=== PATIENT | male | born 1960 | race Caucasian/White ===

== ENCOUNTER 2020-08-23 12:24 | Outpatient (REF) | payer MEDICARE, SELFPAY ==
--- NOTE | 2020-08-23 16:13 | MHC.AU.P13 ---
Adult Audiological Evaluation Date of Visit: 08/23/20 Reason for Appointment: Decreased hearing Does patient feel they have a hearing loss?: Yes If Yes, Which Ear?: Both Ears When Was Hearing Difficulty First Noticed?: 20 years ago Has hearing been tested previously?: No Hearing Handicap Inventory Does a hearing problem cause you to feel embarrassed when meeting new people?: Sometimes Does a hearing problem cause you to feel frustrated when talking to members of your family?: Sometimes Do you have difficulty when someone speaks in a whisper?: No Do you feel handicapped by a hearing problem?: Sometimes Does a hearing problem cause you difficulty when visiting friends, relatives, or neighbors?: Sometimes Does a hearing problem cause you to attend baptism service services less often than you would like?: Sometimes Does a hearing problem cause you to have arguments with family members?: Sometimes Does a hearing problem cause you difficulty when listening to TV or radio?: Sometimes Do you feel that any difficult with your hearing limits or hampers your personal or social life?: Yes Does a hearing problem cause you difficulty when in a restaurants with relatives or friends?: Sometimes HHIE SCORE: 20 Based on HHIE score, patient has: Mild to moderate perceived hearing handicap Ear History: Recent Ear Drainage: Both Ears Blocked/Full Sensation in Ear(s): Both Ears Medical History: Medical History: Developmental Disorder/Delay, Dizziness or Unsteadiness, Headache, Head Injury, Tobacco Use Otoscopy: Right Ear: Totally occluding cerumen, successfully removed with suction, able to fully visualize TM. Left Ear: Totally occluding cerumen, partially removed with suction, significant cerumen accumulation remains. Can partly view the TM. Tympanometry: Right Ear: Normal Middle Ear System (Type A) Left Ear: Normal Middle Ear System (Type A) Hearing Evaluation: Transducer(s) Used: Insert Earphones, Bone Conduction Method: Conventional Audiometry Stimuli Used: Pure Tones Right Ear: Description of Hearing: Normal hearing from 250-500 Hz, sloping a mild to severe hearing loss from 1776-4883 Hz. Bone conduction testing is suggestive of a slight conductive component. Left Ear: Description of Hearing: Normal hearing from 250-500 Hz, sloping a mild to moderately severe hearing loss from 6075-1460 Hz. Bone conduction testing is suggestive of a slight conductive component. Speech Recognition Threshold (SRT): Method Used: Recorded Lists Stimuli Used: Spondee Words Right Ear: 30 dBHL Left Ear: 35 dBHL Word Discrimination: Method: Recorded Lists Word Lists Used: Lista Bisil?bica (Georgian) Right Ear: 100% at 70 dBHL Left Ear: 100% at 70 dBHL Recommendations: Recommendations (Other): Patient should follow-up with his PCP or otolaryngology for cerumen removal. Able to clear the right ear, but left ear became irritated and could not fully clear left ear. Recommend returning to recheck puretone thresholds following cerumen removal to confirm thresholds and discuss hearing aids. Diagnosis: Primary Diagnosis: H90.6 Mixed Hearing Loss, Bilateral Secondary Diagnosis: H61.23 Impacted Cerumen, Bilateral Services Performed: Services Performed: Comprehensive Audiological Evaluation (CPT 46604) Tympanometry (CPT 17555) Signature: Provider: Tami Mata, CCC-A
== END 2020-08-23 12:25 | disposition home or self-care (01) ==
LOC: HO.SH 12:24
PROVIDERS: Visit Provider Student in an Organized Health Care Education/Training Program
DX: H90.6 Mixed conductive and sensorineural hearing loss, bilateral (principal); H61.23 Impacted cerumen, bilateral
CPT/HCPCS: 92557; 92567

== ENCOUNTER 2021-11-13 04:11 | Observation (INO) | payer MEDICARE, SELFPAY ==
[2021-11-13] VITALS (8 sets, daily range): BP systolic 101–137; BP diastolic 49–73; PULSE 62–96; RESP 14–20; TEMP 35.6–36.8; O2SAT 93–97; BMI 27.8
--- NOTE | ~2021-11-13 | XR_ITS ---
EXAMINATION: XR CHEST CLINICAL INFORMATION: Unresponsive COMPARISON: None TECHNIQUE: Frontal view of the chest was obtained. FINDINGS: Patchy peripheral opacity within the right mid and lower lung. Streaky opacity within left lower lung. Normal heart size and pulmonary vascularity. No pneumothorax. No acute or suspicious osseous abnormalities. XR/XR chest 1V IMPRESSION: Patchy opacities within the periphery of the right mid and lower lung could represent infiltrates. Streaky opacity in the left lower lung may represent atelectasis
--- NOTE | ~2021-11-13 | CT_ITS ---
EXAMINATION: CT HEAD WITHOUT CONTRAST CLINICAL INFORMATION: Unresponsive COMPARISON: None TECHNIQUE: Contiguous axial imaging was performed from the skull base to vertex without intravenous administration of contrast. This CT examination was performed using dose optimization techniques as appropriate, variously including the following: *Automated exposure control *Adjustment of mA and/or kV according to patient size (this includes techniques or standardized protocols for targeted exams where dose is matched to indication/reason for exam; i.e. extremities or head) *Use of iterative reconstruction technique DLP: 692 mGy-cm FINDINGS: There is no evidence of acute intracranial hemorrhage or territorial infarction. No abnormal mass effect or midline shift is seen. Pierre to white matter differentiation is well preserved. No extra-axial fluid collections are identified. The ventricles are normal in size. There is no abnormal attenuation within the brain parenchyma. The osseous structures and soft tissues are normal. The mastoid air cells and visualized portions of the paranasal sinuses are well aerated. CT/CT head/brain wo con IMPRESSION: No acute intracranial pathology.
--- NOTE | 2021-11-13 04:27 | ECG_ITS ---
Test Reason : AMS Blood Pressure : / mmHG Vent. Rate : 077 BPM Atrial Rate : 077 BPM P-R Int : 158 ms QRS Dur : 078 ms QT Int : 386 ms P-R-T Axes : 014 093 043 degrees QTc Int : 436 ms Normal sinus rhythm Rightward axis Nonspecific ST abnormality Abnormal ECG No previous ECGs available Referred By: Vita Carter Electronically Signed By:JA WOODS MD
--- NOTE | 2021-11-13 04:34 | ED_ITS ---
HPI - Altered Mental Status General Chief Complaint: General Medical Stated Complaint: unresponsive from SNF Time Seen by Provider: 11/13/21 04:23 Source: patient, EMS, old records reviewed and bowling ball grader and marker Mode of arrival: EMS Limitations: altered mental status History of Present Illness HPI narrative: 60-year-old male brought in by ambulance from a senior living for being unresponsive, on the patient arrival a pin point pupil was noticed, semi responsive, no sign of infection or Trauma patient was given 4 mg of Narcan and patient responded shortly after. Patient is still mumbling and incoherent according to the bowling ball grader and marker, patient declined using any drugs. Reviewing patient's record patient with history of anxiety, schizophrenia, back pain, hernia, and small bowel obstruction. Related Data Allergies Allergy/AdvReac Type Severity Reaction Status Date / Time No Known Allergies Allergy Verified 11/13/21 04:27 Review of Systems Review of Systems: Yes Unobtainable due to mental status PMFSH Social History Social History Advance Directives: No Advance Directives Information Provided: No Physical Exam Vital Signs: Vital Signs: Last Vital Signs Temp 98.3 F 11/13/21 04:56 Pulse 79 11/13/21 04:30 Resp 14 11/13/21 04:30 BP 116/65 11/13/21 04:30 Pulse Ox 96 11/13/21 04:30 BMI result Body Mass Index 27.8 Vital signs have been reviewed as appeared to be correct. Blood pressure normal. Heart rate normal. Respiration rate normal. Temperature normal. Oxygen saturation normal. Appearance: Alert but confused, follow command, No acute distress. Head: Normal external exam. Normocephalic. Atraumatic. No Smith signs noted. No raccoon eyes noted Eyes: PERRLA. EOMI. Conjunctiva and sclera normal. Eyelids normal. ENT: TM's Normal. Pharynx normal. Uvula midline. Moist mucous membranes. No trismus noted. No drooling noted. No muffled voice noted. Neck: Normal inspection. Neck supple. FROM. No adenopathy. Thyroid Normal. No meningeal signs. No neck mass noted. CVS: Normal heart rate and rhythm. Heart sound normal. No murmurs noted. Pulses normal throughout. Respiratory: No respiratory distress. Painless inspiration. Breath sounds normal. No wheezes/rales/rhonchi noted. Chest nontender. No accessory muscle usage noted or decreased air movement noted. Abdomen: Soft and nontender. Bowel sounds normal in all 4 quadrants. No distention noted. No organomegaly noted. No visible injury noted. Back: No CVA tenderness. Full range of motion noted. Skin: Skin warm and dry. Normal skin color. Normal skin turgor. No rashes/lesions/lacerations noted. Extremities: No lower extremity edema. Extremities exhibit normal range of motion. Extremities nontender. Neuro: Oriented X 3. Cranial nerve exam: II-XII are grossly intact No motor deficit. No sensory deficit. Reflexes normal. Course Course Course Narrative: Assessment and plan. 60 years old male came in from senior living for being unresponsive, unlikely to be related to drug abuse since the patient reside in a senior living, chest x-ray is consistent with multilobar pneumonia patient do not meet criteria for SIRS. Patient mental status is improving with fluid and antibiotic. CT head is unrem arkable. Will admit the patient for IV Zosyn and Zithromax possible healthcare acquired pneumonia. MDM - Altered Mental Status Lab Data Attestation: I reviewed the patient's lab results. Result diagrams: 11/13/21 04:49 11/13/21 04:49 Labs: Lab Results 11/13/21 11/13/21 11/13/21 Range/Units 04:49 04:49 04:49 WBC 9.0 (4.8-10.8) X10*3/uL RBC 5.45 (4.60-5.80) X10*6/uL Hgb 15.6 (14.0-18.0) g/dl Hct 47.4 (42.0-52.0) % MCV 87.0 (80.0-98.0) fL MCH 28.6 (27.0-33.0) pg MCHC 32.9 (31.0-36.0) g/dl RDW 15.1 (11.0-16.0) % Plt Count 238 (160-400) X10*3/uL MPV 10.2 (9.4-12.4) fL Immature Gran % (Auto) 1.1 H (0.0-0.4) % Neut % (Auto) 49.5 (45-73) % Lymph % (Auto) 40.2 H (20-40) % [place] % (Auto) 8.9 (2-11) % Eos % (Auto) 0.0 (0-4) % Baso % (Auto) 0.3 (0-2) % Lymph # (Auto) 3.6 (1.2-4.9) X10*3/uL [place] # (Auto) 0.8 (0.1-1.2) X10*3/uL Eos # (Auto) 0.0 (0.0-0.4) X10*3/uL Baso # (Auto) 0.0 (0.0-0.2) X10*3/uL Abs Immat Gran (auto) 0.10 H (0.00-0.03) X10*3/uL Absolute Neuts (auto) 4.4 (2.0-8.3) x10*3/uL Absolute Nucleated RBC 0.000 (0.0-0.012) X10*3/uL Nucleated RBC % (auto) 0.0 (0.0-0.2) /100WBC Sodium 141 (135-145) mmol/L Potassium 3.8 (3.3-5.1) mmol/L Chloride 104 (96-108) mmol/L Carbon Dioxide 30 H (22-29) mmol/L Anion Gap 11 L (12-20) BUN 9 (9-16) mg/dL Creatinine 1.08 (0.5-1.4) mg/dL Estim Creat Clear Calc 86.6 Estimated GFR > 60 Random Glucose 112 (60-115) mg/dL Calcium 9.6 (8.4-10.2) mg/dL Total Bilirubin 0.7 (0.0-1.0) mg/dL Direct Bilirubin 0.3 (0.0-0.5) mg/dL AST 12 (5-37) U/L ALT 18 (0-40) U/L Alkaline Phosphatase 129 H (39-117) U/L Troponin I High Sens < 3.5 (<3.5-35.0) ng/L B-Natriuretic Peptide 27 (<100) pg/mL Total Protein 7.0 (6.5-8.0) g/dL Albumin 3.8 (3.5-5.0) g/dL Lipase 25 (8-78) U/L Urine Color Urine Appearance Urine pH (5.0-8.0) Ur Specific [place] (1.005-1.025) Urine Protein (NEG-TRACE) MG/DL Urine Glucose (UA) (NEG) MG/DL Urine Ketones (NEG) MG/DL Urine Blood (NEG) Urine Nitrite (NEG) Ur Leukocyte Esterase (NEG) Urine RBC (0) /HPF Urine WBC (0-4) /HPF Ur Squamous Epith Cells /LPF Calcium Oxalate Crystal /LPF Urine Bacteria /LPF Hyaline Casts /LPF Urine Mucus /LPF Urine Opiates Screen (Not Detect) Urine Fentanyl Screen (Not Detect) Ur Barbiturates Screen (Not Detect) Ur Phencyclidine Scrn (Not Detect) Ur Amphetamines Screen (Not Detect) U Benzodiazepines Scrn (Not Detect) Urine Cocaine Screen (Not Detect) U Marijuana (THC) Screen (Not Detect) COVID-19 (RONNI) (Negative) COVID-19 Clin Com 11/13/21 11/13/21 11/13/21 Range/Units 04:49 04:49 04:49 WBC (4.8-10.8) X10*3/uL RBC (4.60-5.80) X10*6/uL Hgb (14.0-18.0) g/dl Hct (42.0-52.0) % MCV (80.0-98.0) fL MCH (27.0-33.0) pg MCHC (31.0-36.0) g/dl RDW (11.0-16.0) % Plt Count (160-400) X10*3/uL MPV (9.4-12.4) fL Immature Gran % (Auto) (0.0-0.4) % Neut % (Auto) (45-73) % Lymph % (Auto) (20-40) % [place] % (Auto) (2-11) % Eos % (Auto) (0-4) % Baso % (Auto) (0-2) % Lymph # (Auto) (1.2-4.9) X10*3/uL [place] # (Auto) (0.1-1.2) X10*3/uL Eos # (Auto) (0.0-0.4) X10*3/uL Baso # (Auto) (0.0-0.2) X10*3/uL Abs Immat Gran (auto) (0.00-0.03) X10*3/uL Absolute Neuts (auto) (2.0-8.3) x10*3/uL Absolute Nucleated RBC (0.0-0.012) X10*3/uL Nucleated RBC % (auto) (0.0-0.2) /100WBC Sodium (135-145) mmol/L Potassium (3.3-5.1) mmol/L Chloride (96-108) mmol/L Carbon Dioxide (22-29) mmol/L Anion Gap (12-20) BUN (9-16) mg/dL Creatinine (0.5-1.4) mg/dL Estim Creat Clear Calc Estimated GFR Random Glucose (60-115) mg/dL Calcium (8.4-10.2) mg/dL Total Bilirubin (0.0-1.0) mg/dL Direct Bilirubin (0.0-0.5) mg/dL AST (5-37) U/L ALT (0-40) U/L Alkaline Phosphatase (39-117) U/L Troponin I High Sens (<3.5-35.0) ng/L B-Natriuretic Peptide (<100) pg/mL Total Protein (6.5-8.0) g/dL Albumin (3.5-5.0) g/dL Lipase (8-78) U/L Urine Color DK YELLOW Urine Appearance CLEAR Urine pH 6.0 (5.0-8.0) Ur Specific [place] >= 1.030 H (1.005-1.025) Urine Protein 1+ H (NEG-TRACE) MG/DL Urine Glucose (UA) NEG (NEG) MG/DL Urine Ketones 15 (NEG) MG/DL Urine Blood TRACE (NEG) Urine Nitrite NEG (NEG) Ur Leukocyte Esterase NEG (NEG) Urine RBC 1-4 (0) /HPF Urine WBC 0-2 (0-4) /HPF Ur Squamous Epith Cells 1+ /LPF Calcium Oxalate Crystal 3+ /LPF Urine Bacteria NONE /LPF Hyaline Casts 5-9 /LPF Urine Mucus 2+ /LPF Urine Opiates Screen Not Detected (Not Detect) Urine Fentanyl Screen Not Detected (Not Detect) Ur Barbiturates Screen Not Detected (Not Detect) Ur Phencyclidine Scrn Not Detected (Not Detect) Ur Amphetamines Screen POSITIVE H (Not Detect) U Benzodiazepines Scrn Not Detected (Not Detect) Urine Cocaine Screen Not Detected (Not Detect) U Marijuana (THC) Screen Not Detected (Not Detect) COVID-19 (RONNI) Negative (Negative) COVID-19 Clin Com See Note Imaging Data Chest x-ray: Attestation: I personally reviewed and interpreted this imaging study as follows: Radiologist's impression: Patchy opacities within the periphery of the right mid and lower lung could represent infiltrates. Streaky opacity in the left lower lung may represent atelectasis ? CT scan - head: Attestation: I personally reviewed and interpreted this imaging study as follows: Radiologist's impression: No acute intracranial pathology. Discharge Plan Discharge Clinical Impression: Acute alteration in mental status, Pneumonia Patient Disposition: Admitted As Inpatient
[2021-11-13 04:58] LABS: MANUAL DIFF FLAG NO
[2021-11-13 05:00] LABS: Basophils Percent Auto 0.3 % (0-2); Hematocrit 47.4 % (42.0-52.0); Hemoglobin 15.6 g/dl (14.0-18.0); Imm Gran Pct Auto 1.1 % (0.0-0.4); Lymphocytes Absolute Auto 3.6 X10*3/uL (1.2-4.9); Lymphocytes Percent Auto 40.2 % (20-40); Mean Corpuscular HGB Conc 32.9 g/dl (31.0-36.0); Mean Corpuscular Hemoglobin 28.6 pg (27.0-33.0); Mean Platelet Volume 10.2 fL (9.4-12.4); Monocytes Absolute Auto 0.8 X10*3/uL (0.1-1.2); Monocytes Percent Auto 8.9 % (2-11); Neutrophils Absolute Auto 4.4 x10*3/uL (2.0-8.3); Neutrophils Percent Auto 49.5 % (45-73); Platelet Count 238 X10*3/uL (160-400); Red Blood Count 5.45 X10*6/uL (4.60-5.80); Red Cell Distribution Width 15.1 % (11.0-16.0)
[2021-11-13 05:02] LABS: Appearance Urine CLEAR; Color Urine DK YELLOW; Glucose Urine UA NEG (NEG); Leukocyte Esterase Urine NEG (NEG); Nitrite Urine NEG (NEG); Specific Gravity - Urine >= 1.030 (1.005-1.025); UACC Culture Trigger NO; Urine Blood TRACE (NEG); Urine Ketones 15 MG/DL (NEG); Urine Protein 1+ MG/DL (NEG-TRACE)
--- NOTE | 2021-11-13 05:02 | PC.NURSE ---
pt labs and silveira placed, change coordinator, rectal temp. placed on monitor, Ekg completed. pt is a able to answer question appropriately at time and able to follow commands. Neuro equals
[2021-11-13 05:11] LABS: COVID-19 Test Negative (Negative)
[2021-11-13] MEDS: Naloxone HCl Nasal 4 MG SPRAY NOSTRILALT (05:14)
[2021-11-13] MEDS: 0.9 % Sodium Chloride 1,000 ML 999 ML IV (05:14)
--- NOTE | 2021-11-13 05:16 | PC.NURSE ---
medicated per mar
[2021-11-13 05:18] LABS: Alanine Aminotransferase 18 U/L (0-40); Albumin Level 3.8 g/dL (3.5-5.0); Alkaline Phosphatase 129 U/L (39-117); Amphetamine Screen Urine POSITIVE (Not Detect); Anion Gap 11 (12-20); Aspartate Amino Transferase 12 U/L (5-37); Barbiturates, Urine Not Detected (Not Detect); Benzodiazepines Screen Urine Not Detected (Not Detect); Bilirubin Direct 0.3 mg/dL (0.0-0.5); Bilirubin Total 0.7 mg/dL (0.0-1.0); Blood Urea Nitrogen 9 mg/dL (9-16); Calcium 9.6 mg/dL (8.4-10.2); Cannabinoid Screen Urine Not Detected (Not Detect); Carbon Dioxide 30 mmol/L (22-29); Chloride 104 mmol/L (96-108); Cocaine Screen Urine Not Detected (Not Detect); Creatinine Clr Calc Pharmacy 86.6; Estimated Glomerular Filt Rate > 60; Fentanyl, urine Not Detected (Not Detect); Glucose Random 112 mg/dL (60-115); Lipase 25 U/L (8-78); Opiate Screen Urine Not Detected (Not Detect); Phencyclidine Screen Urine Not Detected (Not Detect); Potassium 3.8 mmol/L (3.3-5.1); Sodium 141 mmol/L (135-145)
[2021-11-13 05:20] LABS: B Type Natriuretic Peptide 27 pg/mL (<100); Troponin-I High Sensitivity < 3.5 ng/L (<3.5-35.0)
[2021-11-13 05:29] LABS: Mucus Urine 2+ /LPF; Squamous Epithelial Cell Urine 1+ /LPF; WBC Urine 0-2 /HPF (0-4)
[2021-11-13 05:30] LABS: Calcium Oxalate Crystals Urine 3+ /LPF
[2021-11-13] MEDS: Piperacillin Sodium/Tazobactam 3.375 GM in 0.9 % Sodium Chloride 50 ML IV (06:38)
[2021-11-13] MEDS: Azithromycin 500 MG in 0.9 % Sodium Chloride 250 ML 125 MG IV (07:20)
--- NOTE | 2021-11-13 09:59 | PM.IMHP ---
History of Present Illness Date of Service: 11/13/21 Chief Complaint: unresponsiveness This is a 60 yo M with a PMH as outlined below who was sent in from [facility] for unresponsiveness. The events that led to this presentation remain unclear. Upon arrival to the ED, the patient was noted to have pin point pupils and was given narcan with improvement in his overall condition. His work up in the ED showed that a cxr which showed right-sided infiltrates. His blood work essentially benign. His UTox was positive for amphetamines but negative for opiates. He was given IV antibiotics, IV fluids and admission was requested. Patient is seen and examined in the ED. Initially, he does not respond to any questions. Upon asking him if he is hungry, he does open eyes and state that he would like to eat. He also requests removal of silveira catheter. He does not know where he is and does not recall the events that led him here. He is not sure of the date. However, he does obey basic commands like lifting arms and legs. His medical history is obtained from the records sent in by [facility]. PMH/PSH - see below FH / SH -- unable to assess secondary to patient condition and not listed on [facility] paperwork Review of Systems Review of Systems: unreliable due to mental status [facility] Medical History (Updated 11/13/21 @ 11:01 by Sander Pulliam MD) Back pain AMAURI (generalized anxiety disorder) GERD (gastroesophageal reflux disease) MDD (major depressive disorder) SBO (small bowel obstruction) Schizophrenia Pertinent family history: unable to assess secondary to patient condition and not listed on [facility] paperwork Surgical History (Updated 11/13/21 @ 10:51 by Sander Pulliam MD) Incarcerated hernia Social History Advance Directives: No Advance Directives Information Provided: No Meds Allergies Allergy/AdvReac Type Severity Reaction Status Date / Time No Known Allergies Allergy Verified 11/13/21 04:27 Active Medications: Current Medications Enoxaparin Sodium (Enoxaparin Sodium 40 Mg/0.4 Ml Syringe) 40 mg SUBCUT Q24H [facility] Ampicillin Sodium/Sulbactam (Sodium 1.5 gm/ Sodium Chloride) 100 mls @ 200 mls/hr IV Q6H [facility] Pharmacy Consult (Consult Rx Perform Med Rec) 1 each MISCELLANE ONCE PRN PRN Reason: Consult order Sodium Chloride (0.9 % Sodium Chloride Flush 3 Ml Syringe) 3 ml IVFLUSH QSHIFT KAVON Physical Exam Vital Signs and Narrative: Vital Signs: Last Vital Signs Temp 98.2 F 11/13/21 07:26 Pulse 79 11/13/21 08:31 Resp 15 11/13/21 08:31 BP 124/73 11/13/21 08:31 Pulse Ox 95 11/13/21 08:31 BMI result Body Mass Index 27.8 Const: Other: Constitutional - initially not responding but subsequently awakens and obeys basic commands, not in any acute distress Eyes - PERRLA, EOMI Cardiovascular - S1S2, RRR, No edema Respiratory - Normal lung expansion, Normal respiratory effort, No respiratory distress, CTA bilaterally Gastrointestinal - NT / ND; +BS; No rebound or guarding - No CVA tenderness Extremities - no calf tenderness bilaterally, no swelling Musculoskeletal - Normal inspection, normal ROM Skin - Warm/Dry Neurological - Oriented to self, but otherwise disoriented; moving all 4 extremities spontaneously as well on command; no facial asymmetry or slurred speech Results Labs CBC and Chem 7: 11/13/21 04:49 11/13/21 04:49 Labs: Laboratory Results - last 24 hr 11/13/21 11/13/21 11/13/21 04:49 04:49 04:49 MCV 87.0 MCH 28.6 MCHC 32.9 RDW 15.1 Plt Count 238 MPV 10.2 Immature Gran % (Auto) 1.1 H Neut % (Auto) 49.5 Lymph % (Auto) 40.2 H [place] % (Auto) 8.9 Eos % (Auto) 0.0 Baso % (Auto) 0.3 Lymph # (Auto) 3.6 [place] # (Auto) 0.8 Eos # (Auto) 0.0 Baso # (Auto) 0.0 Abs Immat Gran (auto) 0.10 H Absolute Neuts (auto) 4.4 Absolute Nucleated RBC 0.000 Nucleated RBC % (auto) 0.0 Anion Gap 11 L Estim Creat Clear Calc 86.6 Estimated GFR > 60 Random Glucose 112 Lactic Acid Calcium 9.6 Total Bilirubin 0.7 Direct Bilirubin 0.3 AST 12 ALT 18 Alkaline Phosphatase 129 H Troponin I High Sens < 3.5 B-Natriuretic Peptide 27 Total Protein 7.0 Albumin 3.8 Lipase 25 Urine Color Urine Appearance Urine pH Ur Specific [place] Urine Protein Urine Glucose (UA) Urine Ketones Urine Blood Urine Nitrite Ur Leukocyte Esterase Urine RBC Urine WBC Ur Squamous Epith Cells Calcium Oxalate Crystal Urine Bacteria Hyaline Casts Urine Mucus Urine Opiates Screen Urine Fentanyl Screen Ur Barbiturates Screen Ur Phencyclidine Scrn Ur Amphetamines Screen U Benzodiazepines Scrn Urine Cocaine Screen U Marijuana (THC) Screen COVID-19 (RONNI) COVID-19 Clin Com 11/13/21 11/13/21 11/13/21 04:49 04:49 04:49 MCV MCH MCHC RDW Plt Count MPV Immature Gran % (Auto) Neut % (Auto) Lymph % (Auto) [place] % (Auto) Eos % (Auto) Baso % (Auto) Lymph # (Auto) [place] # (Auto) Eos # (Auto) Baso # (Auto) Abs Immat Gran (auto) Absolute Neuts (auto) Absolute Nucleated RBC Nucleated RBC % (auto) Anion Gap Estim Creat Clear Calc Estimated GFR Random Glucose Lactic Acid Calcium Total Bilirubin Direct Bilirubin AST ALT Alkaline Phosphatase Troponin I High Sens B-Natriuretic Peptide Total Protein Albumin Lipase Urine Color DK YELLOW Urine Appearance CLEAR Urine pH 6.0 Ur Specific [place] >= 1.030 H Urine Protein 1+ H Urine Glucose (UA) NEG Urine Ketones 15 Urine Blood TRACE Urine Nitrite NEG Ur Leukocyte Esterase NEG Urine RBC 1-4 Urine WBC 0-2 Ur Squamous Epith Cells 1+ Calcium Oxalate Crystal 3+ Urine Bacteria NONE Hyaline Casts 5-9 Urine Mucus 2+ Urine Opiates Screen Not Detected Urine Fentanyl Screen Not Detected Ur Barbiturates Screen Not Detected Ur Phencyclidine Scrn Not Detected Ur Amphetamines Screen POSITIVE H U Benzodiazepines Scrn Not Detected Urine Cocaine Screen Not Detected U Marijuana (THC) Screen Not Detected COVID-19 (RONNI) Negative COVID-19 Clin Com See Note 11/13/21 06:36 MCV MCH MCHC RDW Plt Count MPV Immature Gran % (Auto) Neut % (Auto) Lymph % (Auto) [place] % (Auto) Eos % (Auto) Baso % (Auto) Lymph # (Auto) [place] # (Auto) Eos # (Auto) Baso # (Auto) Abs Immat Gran (auto) Absolute Neuts (auto) Absolute Nucleated RBC Nucleated RBC % (auto) Anion Gap Estim Creat Clear Calc Estimated GFR Random Glucose Lactic Acid 1.0 Calcium Total Bilirubin Direct Bilirubin AST ALT Alkaline Phosphatase Troponin I High Sens B-Natriuretic Peptide Total Protein Albumin Lipase Urine Color Urine Appearance Urine pH Ur Specific [place] Urine Protein Urine Glucose (UA) Urine Ketones Urine Blood Urine Nitrite Ur Leukocyte Esterase Urine RBC Urine WBC Ur Squamous Epith Cells Calcium Oxalate Crystal Urine Bacteria Hyaline Casts Urine Mucus Urine Opiates Screen Urine Fentanyl Screen Ur Barbiturates Screen Ur Phencyclidine Scrn Ur Amphetamines Screen U Benzodiazepines Scrn Urine Cocaine Screen U Marijuana (THC) Screen COVID-19 (RONNI) COVID-19 Clin Com Imaging Radiologist's Impressions: Impressions Chest X-Ray 11/13/21 05:35 IMPRESSION: Patchy opacities within the periphery of the right mid and lower lung could represent infiltrates. Streaky opacity in the left lower lung may represent atelectasis Head CT 11/13/21 05:44 IMPRESSION: No acute intracranial pathology. Assessment and Plan (1) Aspiration pneumonia: Status: Acute This is a 60 yo M [facility] Upon arrival to the ED he was noted to have pin point pupils and received Narcan with reported improvement in his unresponsiveness. His work up revealed a CXR suggestive of right sided pneumonia. He will be observed overnight with possible d/c home in the next 24 hours. 1. Period of unresponsiveness Appears to be resolving. Cause is not entirely clear. ED records indicate an improvement with Narcan administration, but his UTox is negative for opiates (+ for amphetamines) Will need to obtain collateral information on his baseline 2. Right sided pneumonia, suspected aspiration Given his presentation, concern over aspiration pneumonia Empiric IV Unasyn Does not have any evidence of sepsis as this time 3. GERD continue PPI 4. Mood continue baseline meds once med rec completed. Presumed Full code as patient unable to answer Quality Stroke Does the patient have a stroke diagnosis?: No VTE Prior VTE?: No VTE Risk Level:: Medical - moderate - high VTE Device Contraindication: Treatment Not Indicated VTE Drug Contraindication: N/A - Med Ordered
[2021-11-13] MEDS: Ampicillin Sodium/Sulbactam Na 1.5 GM in 0.9 % Sodium Chloride 100 ML IV ×3 (11:29→22:23)
[2021-11-13] MEDS: Enoxaparin Sodium 40 MG/0.4 ML SYRINGE SUBCUT (11:29)
--- NOTE | 2021-11-13 15:10 | P.EN_ITS ---
Event Note Date of Service: 11/13/21 Event Note: Communicated with provider, Dr. Sander Pulliam, via secure messaging system. CBC with diff ordered for tomorrow am. Clozaril 25mg has already been ordered, to start tonight. This casualty underwriter will see patient tomorrow am. Thank you.
[2021-11-13] MEDS: 0.9 % Sodium Chloride Flush 3 ML SYRINGE IVFLUSH (15:46)
--- NOTE | 2021-11-13 16:38 | PC.NURSE ---
patient brought from ed and placed in bed 11, pt offer no complaints at this time other than requesting to have his iv removed, will continue to monitor.
--- NOTE | 2021-11-13 18:46 | PC.NURSE ---
patient currently a&o, eating dinner, offering no c/o pain or discomfort, call keenan within reach, will contiue to monitor.
[2021-11-13] MEDS: cloZAPine 25 MG TABLET PO (20:30)
[2021-11-13] MEDS: ARIPiprazole 30 MG TABLET PO (20:30)
--- NOTE | 2021-11-13 20:31 | PC.NURSE ---
pt medicated per order
--- NOTE | 2021-11-13 22:24 | PC.NURSE ---
iv antibiotics infusing per order
[2021-11-14] MEDS: 0.9 % Sodium Chloride Flush 3 ML SYRINGE IVFLUSH ×2 (01:38→10:29)
[2021-11-14 06:10] VITALS: BP 133/69; PULSE 97; RESP 19; TEMP 36.5; O2SAT 97
[2021-11-14] MEDS: Ampicillin Sodium/Sulbactam Na 1.5 GM in 0.9 % Sodium Chloride 100 ML IV ×2 (06:31→10:32)
[2021-11-14] MEDS: Omeprazole 20 MG CAPSULE.DR PO (06:31)
[2021-11-14 07:26] LABS: MANUAL DIFF FLAG NO
[2021-11-14 07:33] LABS: Basophils Absolute Auto 0.1 X10*3/uL (0.0-0.2); Basophils Percent Auto 0.6 % (0-2); Hematocrit 44.6 % (42.0-52.0); Hemoglobin 14.7 g/dl (14.0-18.0); Imm Gran Abs Auto 0.16 X10*3/uL (0.00-0.03); Lymphocytes Absolute Auto 2.3 X10*3/uL (1.2-4.9); Lymphocytes Percent Auto 28.8 % (20-40); Mean Corpuscular Hemoglobin 28.8 pg (27.0-33.0); Mean Corpuscular Volume 87.3 fL (80.0-98.0); Mean Platelet Volume 10.4 fL (9.4-12.4); Monocytes Absolute Auto 0.7 X10*3/uL (0.1-1.2); Monocytes Percent Auto 8.7 % (2-11); Neutrophils Absolute Auto 4.8 x10*3/uL (2.0-8.3); Neutrophils Percent Auto 59.9 % (45-73); Platelet Count 224 X10*3/uL (160-400); Red Blood Count 5.11 X10*6/uL (4.60-5.80); Red Cell Distribution Width 15.2 % (11.0-16.0)
--- NOTE | 2021-11-14 09:13 | MHC.CM.PN ---
PATIENT IS IN FROM [facility] REFERRAL PLACED FOR HIS RETURN. HCP IN FACILITY DOCUMENTS AND TO BE UPLOADED INTO [employer]. MCKEON 11/14 IN CHART.
--- NOTE | 2021-11-14 09:48 | PM.PSYCN ---
History of Present Illness Date of Service: 11/14/21 Chief Complaint: Unresponsive Reason for Consult: No clozaril for over 48 hours, assist with re-initiation Requesting physician: Sander Pulliam Discussed with referring provider: Yes Sources of Information: patient interviewed and chart reviewed Additional Sources of Information: spoke with returned case inspector [facility] Narrative: Patient is a 60 yo M with a PMH of schizophrenia, sent in from SNF for unresponsiveness. The events that led to this presentation remain unclear. Upon arrival to the ED, the patient was noted to have pin point pupils and was given narcan with improvement in his overall condition. His work up in the ED showed that a cxr which showed right-sided infiltrates. His blood work essentially benign. His UTox was positive for amphetamines but negative for opiates. He was given IV antibiotics, IV fluids and admission was requested. A med reconciliation noted that patient had been receiving Abilify as well as clozapine. 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 Appears to have come in from [facility] in [place]. Unclear at this time as to whether he lives in a penitentiary. Past Psychiatric History: unknown, patient carries diagnosis of schizophrenia in chart, receives two antipsychotics. Medical Evaluation Reviewed: Yes EKG reviewed, labs, including CBC, ANC reviewed. Personal & Social History: Unknown Review of Systems Review of Systems Patient A+O X 1-2. Stated that he feels fine. Constitutional: Reports no additional constitutional complaints Eyes: Reports no additional eye complaints Reports Normal hearing present Reports Normal hearing present [facility] Medical History (Updated 11/14/21 @ 10:13 by Jocelyn Cain) Back pain AMAURI (generalized anxiety disorder) GERD (gastroesophageal reflux disease) MDD (major depressive disorder) SBO (small bowel obstruction) Schizophrenia Surgical History (Updated 11/13/21 @ 10:51 by Sander Pulliam MD) Incarcerated hernia Diagnostics Vital Signs (24Hr): Vital Signs - 24 hr 11/13/21 12:25 11/13/21 15:44 11/13/21 19:38 Temperature 98.1 F 98.2 F Pulse Rate 90 96 93 Respiratory Rate 16 20 16 Blood Pressure 101/60 106/49 L 135/66 Pulse Oximetry 96 95 96 11/13/21 23:55 11/14/21 06:10 Temperature 96.0 F L 97.7 F Pulse Rate 77 97 Respiratory Rate 18 19 Blood Pressure 104/63 133/69 Pulse Oximetry 97 97 BMI result Body Mass Index 27.8 Labs Results: 11/14/21 07:15 11/13/21 04:49 Labs: Laboratory Results - last 48 hr 11/13/21 11/13/21 11/13/21 04:49 04:49 04:49 WBC 9.0 RBC 5.45 Hgb 15.6 Hct 47.4 MCV 87.0 MCH 28.6 MCHC 32.9 RDW 15.1 Plt Count 238 MPV 10.2 Immature Gran % (Auto) 1.1 H Neut % (Auto) 49.5 Lymph % (Auto) 40.2 H [place] % (Auto) 8.9 Eos % (Auto) 0.0 Baso % (Auto) 0.3 Lymph # (Auto) 3.6 [place] # (Auto) 0.8 Eos # (Auto) 0.0 Baso # (Auto) 0.0 Abs Immat Gran (auto) 0.10 H Absolute Neuts (auto) 4.4 Absolute Nucleated RBC 0.000 Nucleated RBC % (auto) 0.0 Sodium 141 Potassium 3.8 Chloride 104 Carbon Dioxide 30 H Anion Gap 11 L BUN 9 Creatinine 1.08 Estim Creat Clear Calc 86.6 Estimated GFR > 60 Random Glucose 112 Lactic Acid Calcium 9.6 Total Bilirubin 0.7 Direct Bilirubin 0.3 AST 12 ALT 18 Alkaline Phosphatase 129 H Troponin I High Sens < 3.5 B-Natriuretic Peptide 27 Total Protein 7.0 Albumin 3.8 Lipase 25 Urine Color Urine Appearance Urine pH Ur Specific [place] Urine Protein Urine Glucose (UA) Urine Ketones Urine Blood Urine Nitrite Ur Leukocyte Esterase Urine RBC Urine WBC Ur Squamous Epith Cells Calcium Oxalate Crystal Urine Bacteria Hyaline Casts Urine Mucus Urine Opiates Screen Urine Fentanyl Screen Ur Barbiturates Screen Ur Phencyclidine Scrn Ur Amphetamines Screen U Benzodiazepines Scrn Urine Cocaine Screen U Marijuana (THC) Screen COVID-19 (RONNI) COVID-19 Clin Com 11/13/21 11/13/21 11/13/21 04:49 04:49 04:49 WBC RBC Hgb Hct MCV MCH MCHC RDW Plt Count MPV Immature Gran % (Auto) Neut % (Auto) Lymph % (Auto) [place] % (Auto) Eos % (Auto) Baso % (Auto) Lymph # (Auto) [place] # (Auto) Eos # (Auto) Baso # (Auto) Abs Immat Gran (auto) Absolute Neuts (auto) Absolute Nucleated RBC Nucleated RBC % (auto) Sodium Potassium Chloride Carbon Dioxide Anion Gap BUN Creatinine Estim Creat Clear Calc Estimated GFR Random Glucose Lactic Acid Calcium Total Bilirubin Direct Bilirubin AST ALT Alkaline Phosphatase Troponin I High Sens B-Natriuretic Peptide Total Protein Albumin Lipase Urine Color DK YELLOW Urine Appearance CLEAR Urine pH 6.0 Ur Specific [place] >= 1.030 H Urine Protein 1+ H Urine Glucose (UA) NEG Urine Ketones 15 Urine Blood TRACE Urine Nitrite NEG Ur Leukocyte Esterase NEG Urine RBC 1-4 Urine WBC 0-2 Ur Squamous Epith Cells 1+ Calcium Oxalate Crystal 3+ Urine Bacteria NONE Hyaline Casts 5-9 Urine Mucus 2+ Urine Opiates Screen Not Detected Urine Fentanyl Screen Not Detected Ur Barbiturates Screen Not Detected Ur Phencyclidine Scrn Not Detected Ur Amphetamines Screen POSITIVE H U Benzodiazepines Scrn Not Detected Urine Cocaine Screen Not Detected U Marijuana (THC) Screen Not Detected COVID-19 (RONNI) Negative COVID-19 Clin Com See Note 11/13/21 11/14/21 06:36 07:15 WBC 8.0 RBC 5.11 Hgb 14.7 Hct 44.6 MCV 87.3 MCH 28.8 MCHC 33.0 RDW 15.2 Plt Count 224 MPV 10.4 Immature Gran % (Auto) 2.0 H Neut % (Auto) 59.9 Lymph % (Auto) 28.8 [place] % (Auto) 8.7 Eos % (Auto) 0.0 Baso % (Auto) 0.6 Lymph # (Auto) 2.3 [place] # (Auto) 0.7 Eos # (Auto) 0.0 Baso # (Auto) 0.1 Abs Immat Gran (auto) 0.16 H Absolute Neuts (auto) 4.8 Absolute Nucleated RBC 0.000 Nucleated RBC % (auto) 0.0 Sodium Potassium Chloride Carbon Dioxide Anion Gap BUN Creatinine Estim Creat Clear Calc Estimated GFR Random Glucose Lactic Acid 1.0 Calcium Total Bilirubin Direct Bilirubin AST ALT Alkaline Phosphatase Troponin I High Sens B-Natriuretic Peptide Total Protein Albumin Lipase Urine Color Urine Appearance Urine pH Ur Specific [place] Urine Protein Urine Glucose (UA) Urine Ketones Urine Blood Urine Nitrite Ur Leukocyte Esterase Urine RBC Urine WBC Ur Squamous Epith Cells Calcium Oxalate Crystal Urine Bacteria Hyaline Casts Urine Mucus Urine Opiates Screen Urine Fentanyl Screen Ur Barbiturates Screen Ur Phencyclidine Scrn Ur Amphetamines Screen U Benzodiazepines Scrn Urine Cocaine Screen U Marijuana (THC) Screen COVID-19 (RONNI) COVID-19 Clin Com EKG EKG: reviewed Imaging Radiology Impressions: ITS Impressions Chest X-Ray 11/13/21 05:35 IMPRESSION: Patchy opacities within the periphery of the right mid and lower lung could represent infiltrates. Streaky opacity in the left lower lung may represent atelectasis Head CT 11/13/21 05:44 IMPRESSION: No acute intracranial pathology. Mental Status Exam Mental Status Exam Narrative: Well-developed, well-nourished male, resting comfortably in bed. Alert and oriented times 1-2. Reported he is in [place], but does not remember date, or reason he is in the hospital. Reports that he feels fine . Stated that he is hungry. Patient Appearance: Fatigued, Disheveled and Appropriate Patient Orientation: Person and Place Level of Consciousness: Awake and Disoriented Patient Behavior: Appropriate, Cooperative and Good Eye Contact Mood Description: Calm and Appropriate Affect Description: Appropriate and Blunted Patient Cognition Impaired: Yes Ability to Follow Directions: Good Speech Pattern: Coherent and Mumbled (mumbled at times, but mostly coherent. ) Memory Description: Immediate Impaired and Recent Impaired Hallucinations: None (Patient did not report any type of hallucinations, and did not appear to be responding to any type of internal stimuli.) Delusions: Not Present (Unable to assess fully, however did not make any statements to indicate delusional thought.) Thought Process: Disoriented (Did not know date or day, did not know why in hospital.) Thought Content: positive for [place] Judgement: Poor Judgement and Insight: Patient unable to report situation, did not know his antipsychotic medications, stated ?everything is?. Medications Medications Current Medications Aripiprazole (Aripiprazole 30 Mg Tablet) 30 mg PO BEDTIME [facility] Last Admin: 11/13/21 20:30 Dose: 30 mg Documented by: Clozapine (Clozapine 25 Mg Tablet) 25 mg PO BEDTIME [facility] Last Admin: 11/13/21 20:30 Dose: 25 mg Documented by: Enoxaparin Sodium (Enoxaparin Sodium 40 Mg/0.4 Ml Syringe) 40 mg SUBCUT Q24H [facility] Last Admin: 11/13/21 11:29 Dose: 40 mg Documented by: Ampicillin Sodium/Sulbactam (Sodium 1.5 gm/ Sodium Chloride) 100 mls @ 200 mls/hr IV Q6H [facility] Last Infusion: 11/14/21 07:19 Dose: Infused Documented by: Omeprazole (Omeprazole 20 Mg Capsule.) 20 mg PO DAILY@0630 [facility] Last Admin: 11/14/21 06:31 Dose: 20 mg Documented by: Pharmacy Consult (Consult Rx Perform Med Rec) 1 each MISCELLANE ONCE PRN PRN Reason: Consult order Polyethylene Glycol (Polyethylene Glycol 3350 17 Gm Powd.Pack) 17 gm PO DAILY [facility] Senna/Docusate Sodium (Sennosides/Docusate Sodium Tablet) 2 tab PO BEDTIME PRN PRN Reason: Constipation Sodium Chloride (0.9 % Sodium Chloride Flush 3 Ml Syringe) 3 ml IVFLUSH QSHIFT [facility] Last Admin: 11/14/21 01:38 Dose: 3 ml Documented by: Allergies Allergies Allergy/AdvReac Type Severity Reaction Status Date / Time No Known Allergies Allergy Verified 11/13/21 04:27 Assessment & Plan Assessment & Plan (1) Schizophrenia: Status: Acute Code(s): F20.9 - Schizophrenia, unspecified Assessment and Plan: Psychiatry service was asked to meet with patient regarding clozapine. As per report from SNF, patient had not received Clozaril for over 48 hours. Medication re-initiated last evening at 25 mg. Patient appears to be tolerating well. EKG reviewed, labs reviewed. No concerns at this time. Patient denies any thought of harm to self or others, denies , VH. When asked if he feels safe, he reported ?yes ?. Patient's baseline is unknown at this time, it is also unclear as to whether he lives at [facility] or in a penitentiary, or possibly somewhere else. CM has reached out to [facility] in order to determine residency. He did have U tox positive for amphetamines, with no history of prescription. A mass pat search yielded no results. When asked about this, patient stated ?I don't remember ?. Assessment and Plan: 1. If patient remains here overnight, increased evening dose to clozapine 50 mg tonight. If patient remains inpatient while receiving treatment for pneumonia, psychiatry service will continue to assist with titration upwards toward outpatient dosing of clozapine. 2. As patient was currently in SNF, disposition would be to return to facility once medically cleared, with follow-up with outpatient psych provider regarding antipsychotic medications. This recommendation has been shared with provider, Dr. Sander Pulliam, in person. Thank you for this consultation. I spent minutes with the patient and/or on the patient floor today, greater than?50% of which was spent counseling/coordinating care. Patient educated on: diagnosis and medication risk/benefits Informed Consent: further education needed
[2021-11-14] MEDS: polyethylene glycoL 3350 17 GM POWD.PACK PO (10:29)
[2021-11-14] MEDS: Enoxaparin Sodium 40 MG/0.4 ML SYRINGE SUBCUT (10:30)
--- NOTE | 2021-11-14 10:51 | P.DS_ITS ---
DS: Providers Provider Date of Service: 11/14/21 Date of admission: 11/13/21 09:56 Primary care physician: Unknown Physician Consults: 11/13/21 13:55 Consult to Psychiatry Routine Consulting Provider: Jocelyn Cain Reason for consultation: on high dose clozaril (550mg total), held >48 hours at [facility] DS: Diagnosis Discharge Diagnosis (1) Schizophrenia: Status: Acute DS: Summary Hospital Course Hospital Course: HPI From admission H&P: This is a 60 yo M with a PMH as outlined below who was sent in from [facility] for unresponsiveness. The events that led to this presentation remain unclear. Upon arrival to the ED, the patient was noted to have pin point pupils and was given narcan with improvement in his overall condition. His work up in the ED showed that a cxr which showed right-sided infiltrates. His blood work essentially benign. His UTox was positive for amphetamines but negative for opiates. He was given IV antibiotics, IV fluids and admission was requested. Patient is seen and examined in the ED. Initially, he does not respond to any questions. Upon asking him if he is hungry, he does open eyes and state that he would like to eat. He also requests removal of silveira catheter. He does not know where he is and does not recall the events that led him here. He is not sure of the date. However, he does obey basic commands like lifting arms and legs. His medical history is obtained from the records sent in by [facility]. Hospital Course: Patient was treated with IVF and IV Unasyn for his suspected aspiration pneumonia. In regards to the events that led him to a period of unresponsivene ss, these remains unknown. A CT head is negative for acute findings. The patient has recovered to his suspected baseline on his own. He will be d/c with oral augmetin to complete a course of antibiotics for aspiration pnuemonia. Of note, collateral information obtained by pharmacist at [facility] revealed that patient had missed at least 48 hours of his clozaril and therefore it has been restarted at 25mg at bedtime. An ANC has been checked on the day of d/c and is 4.8 (was 4.4 the day before). Uptitration will be deferred to his outpatient psychiatric team. He was evaluated by psych team in the hospital who are in agreement with the dosing of his clozaril. Time Spent with Patient Time attestation: Total time spent providing and/or coordinating discharge services: Discharge coordination time: Less than 30 minutes Quality: Stroke Does the patient have a stroke diagnosis?: No Physical Exam Vital Signs: Vital Signs: Last Vital Signs Temp 97.7 F 11/14/21 06:10 Pulse 97 11/14/21 06:10 Resp 19 11/14/21 06:10 BP 133/69 11/14/21 06:10 Pulse Ox 97 11/14/21 06:10 BMI result Body Mass Index 27.8 Const: Other: General - no acute distress, appears comfortable Cardiovascular - regular rate and rhythm, S1-S2 Lungs - normal respiratory effort, clear to auscultation bilaterally, no wheezing Abdomen - soft, nontender, no rebound or guarding Extremities - no edema bilaterally Neuro - awake and alert, no focal deficits; oriented to self and place but not situation DS: Data Data Completed and Pending Labs on day of discharge: Laboratory Results - last 24 hr 11/14/21 07:15 WBC 8.0 RBC 5.11 Hgb 14.7 Hct 44.6 MCV 87.3 MCH 28.8 MCHC 33.0 RDW 15.2 Plt Count 224 MPV 10.4 Immature Gran % (Auto) 2.0 H Neut % (Auto) 59.9 Lymph % (Auto) 28.8 [place] % (Auto) 8.7 Eos % (Auto) 0.0 Baso % (Auto) 0.6 Lymph # (Auto) 2.3 [place] # (Auto) 0.7 Eos # (Auto) 0.0 Baso # (Auto) 0.1 Abs Immat Gran (auto) 0.16 H Absolute Neuts (auto) 4.8 Absolute Nucleated RBC 0.000 Nucleated RBC % (auto) 0.0 Preliminary micro results at discharge 11/13/21 06:36 Blood Culture - Preliminary Blood - Venous No growth after 24 hours. 11/13/21 06:36 Blood Culture - Preliminary Blood - Venous No growth after 24 hours. Discharge Plan Discharge Patient Disposition: [facility] Discharge Diagnosis: Aspiration Pneumonia Referrals: Physician,Unknown J [Primary Care Provider] - 1 Week Discharge Medications: New amoxicillin-pot clavulanate [Augmentin] 875-125 mg tablet 1 tab PO BID Qty: 10 RF: 0 clozapine [Clozaril] 25 mg tablet 25 mg PO BEDTIME Qty: 30 RF: 0 Continued multivitamin Tablet 1 tab PO DAILY RF: 0 sennosides-docusate sodium [Senna Plus] 8.6-50 mg Tablet 2 tab-cap PO BEDTIME PRN (Reason: Constipation) RF: 0 acetaminophen 500 mg Tablet 1,000 mg PO Q8H PRN (Reason: Severe Pain (Scale Score 7-10)) RF: 0 pantoprazole 40 mg tablet,delayed release (DR/EC) 1 tab PO DAILY RF: 0 metoprolol tartrate 50 mg tablet 1 tab PO BID RF: 0 polyethylene glycol 3350 [Miralax] 17 gram/dose Powder 17 g PO DAILY RF: 0 ondansetron 4 mg Tablet,Disintegrating 4 mg PO Q8H PRN (Reason: Nausea) RF: 0 aripiprazole 30 mg tablet 1 tab PO BEDTIME RF: 0 Discontinued clozapine 100 mg tablet 500 mg PO BEDTIME RF: 0 clozapine 25 mg tablet 50 mg PO BEDTIME RF: 0 Discharge Orders: Discharge Order (Routine); Ordered 11/14/21 Ordered By: Sander Pulliam Diet: advance to usual diet Activity on Discharge: As tolerated Stand Alone Forms: Patient Portal Discharge page Care Plan Goals: To stay healthy and out of the hospital. Health Concerns: Aspiration Pneumonia Abrupt clozaril discontinuation Plan of Treatment: Finish 5 more days of antibiotics for pneumonia Start Clozaril 25mg at bedtime; this will be increased by your providers. Assessment: see hospital course
[2021-11-14 11:07] VITALS: BP 140/78; PULSE 68; RESP 15; TEMP 36.6; O2SAT 96
--- NOTE | 2021-11-14 12:18 | MHC.CM.PN ---
PATIENT TO RETURN TO [facility] FOR 1430 [facility]. RN AND UNIT AWARE OF PLAN.
--- NOTE | 2021-11-14 12:40 | PC.NURSE ---
Nurse to nurse given to Angy at [facility]
== END 2021-11-14 14:44 | disposition skilled nursing facility (03) ==
LOC: HO.ED 06:51 → HO.EDOVER 10:06
PROVIDERS: Admitting Provider Family Medicine; Emergency Provider Emergency Medicine; Visit Provider Family Medicine
DX: J69.0 Pneumonitis due to inhalation of food and vomit (principal); R41.82 Altered mental status, unspecified; K46.0 Unspecified abdominal hernia with obstruction, without gangrene; R94.31 Abnormal electrocardiogram [ECG] [EKG]; F20.9 Schizophrenia, unspecified; F41.9 Anxiety disorder, unspecified; Z20.822 Contact with and (suspected) exposure to COVID-19
CPT/HCPCS: 36415; 70450; 71045; 80048; 80076; 80307; 81001; 81003; 83605; 83690; 83880; 84484; 85025; 87040; 87635; 93005; 96361; 96365; 96367; 96372; 99218; 99285; J0295; J0456; J1650; J2543

== ENCOUNTER 2022-01-26 00:18 | Emergency (ER) | payer OTHER, SELFPAY ==
--- NOTE | 2022-01-26 00:23 | ECG_ITS ---
Test Reason : unresponsive Blood Pressure : / mmHG Vent. Rate : 079 BPM Atrial Rate : 079 BPM P-R Int : 184 ms QRS Dur : 076 ms QT Int : 378 ms P-R-T Axes : 057 061 012 degrees QTc Int : 433 ms Normal sinus rhythm Normal ECG When compared with ECG of 13-NOV-2021 04:29, No significant change was found Referred By: Maximo Hinkle Electronically Signed By:FAHAD HARGROVE
[2022-01-26 00:35] VITALS: BP 139/93; BP 160/96; PULSE 88; PULSE 96; RESP 14; TEMP 36.8; O2SAT 97; O2SAT 98; BMI 32.5
[2022-01-26] MEDS: Naloxone HCl 0.4 MG/ML VIAL IVPUSH (00:41)
[2022-01-26 01:00] LABS: MANUAL DIFF FLAG NO
[2022-01-26 01:01] LABS: Basophils Absolute Auto 0.1 X10*3/uL (0.0-0.2); Basophils Percent Auto 0.9 % (0-2); Hematocrit 48.5 % (42.0-52.0); Hemoglobin 15.5 g/dl (14.0-18.0); Imm Gran Abs Auto 0.03 X10*3/uL (0.00-0.03); Imm Gran Pct Auto 0.3 % (0.0-0.4); Lymphocytes Absolute Auto 2.7 X10*3/uL (1.2-4.9); Lymphocytes Percent Auto 30.4 % (20-40); Mean Corpuscular Hemoglobin 28.2 pg (27.0-33.0); Mean Corpuscular Volume 88.2 fL (80.0-98.0); Mean Platelet Volume 9.7 fL (9.4-12.4); Monocytes Absolute Auto 0.6 X10*3/uL (0.1-1.2); Monocytes Percent Auto 7.2 % (2-11); Neutrophils Absolute Auto 5.4 x10*3/uL (2.0-8.3); Neutrophils Percent Auto 61.2 % (45-73); Platelet Count 245 X10*3/uL (160-400); Red Cell Distribution Width 14.6 % (11.0-16.0); White Blood Count 8.8 X10*3/uL (4.8-10.8)
[2022-01-26 01:03] LABS: VBG Base Excess 2.8 mmol/L; VBG HCO3 29 mmol/L (22-26); VBG pCO2 52 mmHg; VBG pH 7.35 (7.32-7.43); VBG pO2 39 mmHg
[2022-01-26 01:04] LABS: Venous Blood Gas Refer to POC result
[2022-01-26 01:18] LABS: Alanine Aminotransferase 18 U/L (0-40); Albumin Level 3.7 g/dL (3.5-5.0); Alkaline Phosphatase 139 U/L (39-117); Anion Gap 14 (12-20); Aspartate Amino Transferase 14 U/L (5-37); Bilirubin Total 0.8 mg/dL (0.0-1.0); Blood Urea Nitrogen 11 mg/dL (9-16); Calcium 9.1 mg/dL (8.4-10.2); Carbon Dioxide 27 mmol/L (22-29); Chloride 104 mmol/L (96-108); Creatinine Clr Calc Pharmacy 90.9; Estimated Glomerular Filt Rate > 60; Glucose Random 109 mg/dL (60-115); Potassium 3.6 mmol/L (3.3-5.1); Sodium 141 mmol/L (135-145); Total Protein 7.2 g/dL (6.5-8.0)
[2022-01-26 01:21] LABS: Troponin-I High Sensitivity < 3.5 ng/L (<3.5-35.0)
--- NOTE | 2022-01-26 01:58 | ED.AMS ---
HPI - Altered Mental Status General Chief Complaint: Altered Mental Status Stated Complaint: unresponsive Time Seen by Provider: 01/26/22 00:23 Source: EMS Mode of arrival: EMS Limitations: altered mental status History of Present Illness HPI narrative: Patient history of schizophrenia sent from jail for unresponsiveness patient is on Abilify and clozapine. Patient was given 550 mg of clozapine min prior to arrival and when RN went to see him found him in deep sleep unresponsive to painful stimuli similar presentation during last admission on 11/13 patient had similar presentation last time with pinpoint pupils and U tox screen was negative for opiates no history of fall no signs of injury per records patient was not given Clozaril for last 2 days as patient could not be located and was given the medication 550 mg prior to arrival Related Data Home Medications Medication Instructions Recorded Confirmed acetaminophen 500 mg tablet 1,000 mg PO Q8H PRN 11/13/21 11/13/21 aripiprazole 30 mg tablet 1 tab PO BEDTIME 11/13/21 11/13/21 metoprolol tartrate 50 mg tablet 1 tab PO BID 11/13/21 11/13/21 multivitamin 1 tab PO DAILY 11/13/21 11/13/21 ondansetron 4 mg disintegrating 4 mg PO Q8H PRN 11/13/21 11/13/21 tablet pantoprazole 40 mg tablet,delayed 1 tab PO DAILY 11/13/21 11/13/21 release polyethylene glycol 3350 17 17 g PO DAILY 11/13/21 11/13/21 gram/dose oral powder (Miralax) sennosides 8.6 mg-docusate sodium 2 tab-cap PO BEDTIME PRN 11/13/21 11/13/21 50 mg tablet (Senna Plus) Previous Rx's Medication Instructions Recorded amoxicillin 875 mg-potassium 1 tab PO BID #10 tab 11/14/21 clavulanate 125 mg tablet (Augmentin) clozapine 25 mg tablet (Clozaril) 25 mg PO BEDTIME #30 tab 11/14/21 Allergies Allergy/AdvReac Type Severity Reaction Status Date / Time No Known Allergies Allergy Verified 11/13/21 04:27 Review of Systems Review of Systems: Yes all other systems are reviewed and are negative PMFSH Past Medical History Medical History Aspiration pneumonia Back pain AMAURI (generalized anxiety disorder) GERD (gastroesophageal reflux disease) MDD (major depressive disorder) Pneumonia SBO (small bowel obstruction) Schizophrenia Surgical History Incarcerated hernia Social History Social History Alcohol intake: unknown Patient Tobacco Use Status: Current everyday Tobacco user Use of substances other than those prescribed or required for medical reasons: Unknown Advance Directives: No service: No Current occupational status: disabled Physical Exam ED Vital Signs: Vital Signs - 24 hr 01/26/22 00:35 01/26/22 03:32 01/26/22 05:18 Temperature 98.2 F Pulse Rate 88 82 92 Respiratory Rate 14 13 20 Blood Pressure 139/93 H 115/75 Pulse Oximetry 97 96 BMI result Body Mass Index 32.5 Appearance: obtunded No acute distress. Eyes: pupils 2 mm b/e sluggish to react to light, No Nystagmus ENT: Pharynx normal. Oral Mucosa moist Neck: Normal inspection. Neck supple. CVS: Normal heart rate and rhythm. Pulses normal. Respiratory: No respiratory distress. Equal air entry bilateral, no wheezing/rales/rhonchi Abdomen: Soft and nontender. Bowel sounds are present, no mass palpable, Skin: Skin warm and dry. Normal skin color. Normal skin turgor. Extremities: No lower extremity edema. No calf tenderness Neuro: obtunded Course Reevaluation(s) Reevaluation #1: Patient alert and awake communicating saturating 95% at room air had some p.o. fluids will discharge patient jail Time: 06:38 MDM - Altered Mental Status MDM Narrative Medical decision making narrative: Discussed with the nursing staff at the jail patient was given clozaril daily by staff, did miss his Clozaril for last 2 days as in the past. Likely the cause of altered mental status and lethargic have left a close release about 12 hours we anticipate patient will get better after 12 hours patient is saturating 95% on on 4 L gag reflex is present patient woke up when they were trying to put to straight cath. Patient chest x-ray showed patchy peripheral opacities on right lung while the no others signs of infection patient was not coughing but jail staff WBC count is normal. Withhold any antibiotic at this time Lab Data Attestation: I reviewed the patient's lab results. Result diagrams: 01/26/22 00:55 01/26/22 00:55 Labs: Lab Results 01/26/22 01/26/22 01/26/22 Range/Units 00:55 00:55 00:55 WBC 8.8 (4.8-10.8) X10*3/uL RBC 5.50 (4.60-5.80) X10*6/uL Hgb 15.5 (14.0-18.0) g/dl Hct 48.5 (42.0-52.0) % MCV 88.2 (80.0-98.0) fL MCH 28.2 (27.0-33.0) pg MCHC 32.0 (31.0-36.0) g/dl RDW 14.6 (11.0-16.0) % Plt Count 245 (160-400) X10*3/uL MPV 9.7 (9.4-12.4) fL Immature Gran % (Auto) 0.3 (0.0-0.4) % Neut % (Auto) 61.2 (45-73) % Lymph % (Auto) 30.4 (20-40) % [place] % (Auto) 7.2 (2-11) % Eos % (Auto) 0.0 (0-4) % Baso % (Auto) 0.9 (0-2) % Lymph # (Auto) 2.7 (1.2-4.9) X10*3/uL [place] # (Auto) 0.6 (0.1-1.2) X10*3/uL Eos # (Auto) 0.0 (0.0-0.4) X10*3/uL Baso # (Auto) 0.1 (0.0-0.2) X10*3/uL Abs Immat Gran (auto) 0.03 (0.00-0.03) X10*3/uL Absolute Neuts (auto) 5.4 (2.0-8.3) x10*3/uL Absolute Nucleated RBC 0.000 (0.0-0.012) X10*3/uL Nucleated RBC % (auto) 0.0 (0.0-0.2) /100WBC VBG pH (7.32-7.43) VBG pCO2 mmHg VBG pO2 mmHg VBG HCO3 (22-26) mmol/L VBG O2 Saturation % VBG Base Excess mmol/L Sodium 141 (135-145) mmol/L Potassium 3.6 (3.3-5.1) mmol/L Chloride 104 (96-108) mmol/L Carbon Dioxide 27 (22-29) mmol/L Anion Gap 14 (12-20) BUN 11 (9-16) mg/dL Creatinine 1.02 (0.5-1.4) mg/dL Estim Creat Clear Calc 90.9 Estimated GFR > 60 Random Glucose 109 (60-115) mg/dL Calcium 9.1 (8.4-10.2) mg/dL Total Bilirubin 0.8 (0.0-1.0) mg/dL AST 14 (5-37) U/L ALT 18 (0-40) U/L Alkaline Phosphatase 139 H (39-117) U/L Troponin I High Sens < 3.5 (<3.5-35.0) ng/L Total Protein 7.2 (6.5-8.0) g/dL Albumin 3.7 (3.5-5.0) g/dL Urine Opiates Screen (Not Detect) Urine Fentanyl Screen (Not Detect) Ur Barbiturates Screen (Not Detect) Ur Phencyclidine Scrn (Not Detect) Ur Amphetamines Screen (Not Detect) U Benzodiazepines Scrn (Not Detect) Urine Cocaine Screen (Not Detect) U Marijuana (THC) Screen (Not Detect) COVID-19 (RONNI) (Negative) COVID-19 Clin Com 01/26/22 01/26/22 01/26/22 Range/Units 00:56 02:00 03:29 WBC (4.8-10.8) X10*3/uL RBC (4.60-5.80) X10*6/uL Hgb (14.0-18.0) g/dl Hct (42.0-52.0) % MCV (80.0-98.0) fL MCH (27.0-33.0) pg MCHC (31.0-36.0) g/dl RDW (11.0-16.0) % Plt Count (160-400) X10*3/uL MPV (9.4-12.4) fL Immature Gran % (Auto) (0.0-0.4) % Neut % (Auto) (45-73) % Lymph % (Auto) (20-40) % [place] % (Auto) (2-11) % Eos % (Auto) (0-4) % Baso % (Auto) (0-2) % Lymph # (Auto) (1.2-4.9) X10*3/uL [place] # (Auto) (0.1-1.2) X10*3/uL Eos # (Auto) (0.0-0.4) X10*3/uL Baso # (Auto) (0.0-0.2) X10*3/uL Abs Immat Gran (auto) (0.00-0.03) X10*3/uL Absolute Neuts (auto) (2.0-8.3) x10*3/uL Absolute Nucleated RBC (0.0-0.012) X10*3/uL Nucleated RBC % (auto) (0.0-0.2) /100WBC VBG pH 7.35 (7.32-7.43) VBG pCO2 52 mmHg VBG pO2 39 mmHg VBG HCO3 29 H (22-26) mmol/L VBG O2 Saturation 60.0 % VBG Base Excess 2.8 mmol/L Sodium (135-145) mmol/L Potassium (3.3-5.1) mmol/L Chloride (96-108) mmol/L Carbon Dioxide (22-29) mmol/L Anion Gap (12-20) BUN (9-16) mg/dL Creatinine (0.5-1.4) mg/dL Estim Creat Clear Calc Estimated GFR Random Glucose (60-115) mg/dL Calcium (8.4-10.2) mg/dL Total Bilirubin (0.0-1.0) mg/dL AST (5-37) U/L ALT (0-40) U/L Alkaline Phosphatase (39-117) U/L Troponin I High Sens (<3.5-35.0) ng/L Total Protein (6.5-8.0) g/dL Albumin (3.5-5.0) g/dL Urine Opiates Screen Not Detected (Not Detect) Urine Fentanyl Screen Not Detected (Not Detect) Ur Barbiturates Screen Not Detected (Not Detect) Ur Phencyclidine Scrn Not Detected (Not Detect) Ur Amphetamines Screen Not Detected (Not Detect) U Benzodiazepines Scrn Not Detected (Not Detect) Urine Cocaine Screen Not Detected (Not Detect) U Marijuana (THC) Screen Not Detected (Not Detect) COVID-19 (RONNI) Negative (Negative) COVID-19 Clin Com See Note ECG Data ECG #1: Attestation: I personally reviewed and interpreted this ECG as follows: Interpretation: Normal sinus rhythm heart rate 75 beats per minute normal intervals normal axis no acute ST wave changes Discharge Plan Discharge Clinical Impression: Medication side effect Patient Disposition: Home, Self-Care Instructions: Adverse Drug Reaction (ED) Additional Instructions: Do not skip Clozaril Start Clozaril only 25 mg daily if needed and follow-up with psychiatrist Do not skip the dose of Clozaril Prescriptions: No Action multivitamin Tablet 1 tab PO DAILY 0RF sennosides-docusate sodium [Senna Plus] 8.6-50 mg Tablet 2 tab-cap PO BEDTIME PRN (Reason: Constipation) 0RF acetaminophen 500 mg Tablet 1,000 mg PO Q8H PRN (Reason: Severe Pain (Scale Score 7-10)) 0RF pantoprazole 40 mg tablet,delayed release (DR/EC) 1 tab PO DAILY 0RF metoprolol tartrate 50 mg tablet 1 tab PO BID 0RF polyethylene glycol 3350 [Miralax] 17 gram/dose Powder 17 g PO DAILY 0RF ondansetron 4 mg Tablet,Disintegrating 4 mg PO Q8H PRN (Reason: Nausea) 0RF aripiprazole 30 mg tablet 1 tab PO BEDTIME 0RF amoxicillin-pot clavulanate [Augmentin] 875-125 mg tablet 1 tab PO BID Qty: 10 0RF clozapine [Clozaril] 25 mg tablet 25 mg PO BEDTIME Qty: 30 0RF
[2022-01-26 02:20] LABS: Amphetamine Screen Urine Not Detected (Not Detect); Barbiturates, Urine Not Detected (Not Detect); Benzodiazepines Screen Urine Not Detected (Not Detect); Cannabinoid Screen Urine Not Detected (Not Detect); Cocaine Screen Urine Not Detected (Not Detect); Fentanyl, urine Not Detected (Not Detect); Opiate Screen Urine Not Detected (Not Detect); Phencyclidine Screen Urine Not Detected (Not Detect)
[2022-01-26 03:32] VITALS: PULSE 82; RESP 13; O2SAT 97
[2022-01-26] MEDS: Albuterol Sulfate (0.083%) 2.5 MG/3 ML VIAL.NEB 5 MG INHALE (03:32)
[2022-01-26] MEDS: Albuterol/Iprat 2.5/0.5MG 3 ML AMPUL.NEB INHALE (03:32)
[2022-01-26 03:46] LABS: COVID-19 Test Negative (Negative)
--- NOTE | 2022-01-26 04:05 | PC.NURSE ---
I assumed nursing care of Sha upon his arrival to bed 11 via EMS from local [place] for evaluation of unresponsiveness. On arrival the pt was somnolent, responsive to sternal rub but did not open his eyes in response and quickly returned to somnolence. As his ER visit has progressed he has become slightly more responsive - moving extremities to physical stimuli and grimacing and pulling away from oral suctioning. The pt has had a large amount of oral secretions and, while asleep, often sounds as if the secretions are pooling in the back of his throat - therefore we have been regularly suctioning his mouth with a [place] and obtaining moderate amounts of clear sputum out. VS have remained stable, with the exception of his O@ sat's which dropped to 88% approximately 2-3 hours after he arrived. At that time we sat him up straight, performed sternal rub and oral suctioning. His sat's recovered within a few minutes - Gregory KOHLI notified and aware. I also performed a straight cath on the pt, at which time he grabbed at the catheter and grabbed at his pants to pull them back up - purposeful activity. Will continue to monitor Sha.
[2022-01-26 05:18] VITALS: BP 115/75; PULSE 92; RESP 20; O2SAT 96
--- NOTE | 2022-01-26 07:47 | PC.NURSE ---
assumed care of pt, nad at this time. pt awaiting transport back to [place]
[2022-01-26 08:49] VITALS: BP 123/74; PULSE 86; RESP 16; O2SAT 93
--- NOTE | 2022-01-26 09:48 | PC.NURSE ---
attempted to call rn-rn report., continually sent to a voicemail box.
== END 2022-01-26 09:50 | disposition home or self-care (01) ==
PROVIDERS: Emergency Provider Internal Medicine; PCP Internal Medicine
DX: R41.82 Altered mental status, unspecified (principal); F17.200 Nicotine dependence, unspecified, uncomplicated; Z71.6 Tobacco abuse counseling; Z20.822 Contact with and (suspected) exposure to COVID-19; Z79.899 Other long term (current) drug therapy
CPT/HCPCS: 36415; 80053; 80307; 82803; 84484; 85025; 87635; 93005; 94640; 94644; 96374; 99285

== ENCOUNTER 2023-09-26 07:49 | Emergency (ER) | payer OTHER, SELFPAY ==
--- NOTE | ~2023-09-26 | CT_ITS ---
EXAMINATION: CT HEAD WITHOUT CONTRAST CLINICAL INFORMATION: Dizziness COMPARISON: None available. TECHNIQUE: Contiguous axial imaging was performed from the skull base to vertex without intravenous administration of contrast. This CT examination was performed using dose optimization techniques as appropriate, variously including the following: *Automated exposure control *Adjustment of mA and/or kV according to patient size (this includes techniques or standardized protocols for targeted exams where dose is matched to indication/reason for exam; i.e. extremities or head) *Use of iterative reconstruction technique DLP: 789 mGy-cm FINDINGS: There is no evidence of acute intracranial hemorrhage or edematous territorial infarction. No abnormal mass effect or midline shift is seen. Pierre to white matter differentiation is well preserved. No extra-axial fluid collections are identified. The ventricles are normal in size. No abnormal attenuation in the brain parenchyma. No acute calvarial fracture.. Paranasal sinuses and mastoid air cells are well-aerated. CT/CT head/brain wo IV con IMPRESSION: No CT evidence of acute intracranial hemorrhage or edematous territorial infarction.
[2023-09-26 08:03] VITALS: BP 150/84; BP 164/90; PULSE 96; PULSE 99; RESP 18; TEMP 36.7; O2SAT 94; O2SAT 95; BMI 44.0
[2023-09-26 08:14] VITALS: RESP 18
--- NOTE | 2023-09-26 08:15 | PC.NURSE ---
pt is coming from [facility] resp[facility] in [facility] for dizziness and vomiting not sure when the dizziness started but woke up feeling like this cant tell what time is started, with nausea and intermitted, pt seems to be a poor historian not sure why he is at [facility] or howl long he has been there for, pt knows the year and that he is in [place], no nuero deficit, hand grasp strong and equal, no facial droop and moving all extremities, ns on the monitor and vs stable
--- NOTE | 2023-09-26 08:32 | ECG_ITS ---
Test Reason : DIZZINESS Blood Pressure : / mmHG Vent. Rate : 096 BPM Atrial Rate : 096 BPM P-R Int : 166 ms QRS Dur : 078 ms QT Int : 342 ms P-R-T Axes : 069 085 043 degrees QTc Int : 432 ms Normal sinus rhythm RSR' or QR pattern in V1 suggests right ventricular conduction delay Nonspecific ST and T wave abnormality Abnormal ECG When compared with ECG of 26-JAN-2022 01:35, No significant change was found Referred By: Marianne Don Electronically Signed By:CAMI WISE MD
--- NOTE | 2023-09-26 08:33 | ED.DIZZY ---
HPI - Dizziness General Chief Complaint: Dizziness Stated Complaint: DIZZY,VOMITING,COUGH THIS AM,FROM RESPITE PER EMS Time Seen by Provider: 09/26/23 07:55 Source: patient, EMS and historic interpreter Mode of arrival: EMS Limitations: other (very poor historian) History of Present Illness HPI Narrative: 62 yo male with PMH of HTN, schizophrenia, obesity, GERD,pneumonia here with c/o feeling like his head isn't right and feeling dizzy when he looks or turns his head to the right. He is very poor historian. He is coming from [facility] respite and tells us he cannot tell us why he is there other than he has voices. He denies CP/SOB, GIB, he does have nausea but no vomiting. He denies drug use or med error. He states he overall just is sick. He states he has had dizziness 2 times but cannot tell us when it started. I have no timeline of symptom onset. MD elicited complaint: dizziness Onset (ago): unknown Timing: gradual onset Severity: moderate Description: room spinning Context: change in body position History of similar symptoms: Yes Exacerbating factors: movement/ambulation and change in body position Relieving factors: remaining still Associated symptoms: nausea Related Data Home Medications Medication Instructions Recorded Confirmed acetaminophen 500 mg tablet 1,000 mg PO Q8H PRN Severe Pain 11/13/21 11/13/21 (Scale Score 7-10) aripiprazole 30 mg tablet 1 tab PO BEDTIME 11/13/21 11/13/21 metoprolol tartrate 50 mg tablet 1 tab PO BID 11/13/21 11/13/21 multivitamin 1 tab PO DAILY 11/13/21 11/13/21 ondansetron 4 mg disintegrating 4 mg PO Q8H PRN Nausea 11/13/21 11/13/21 tablet pantoprazole 40 mg tablet,delayed 1 tab PO DAILY 11/13/21 11/13/21 release polyethylene glycol 3350 17 17 g PO DAILY 11/13/21 11/13/21 gram/dose oral powder (Miralax) sennosides 8.6 mg-docusate sodium 2 tab-cap PO BEDTIME PRN 11/13/21 11/13/21 50 mg tablet (Senna Plus) Constipation Previous Rx's Medication Instructions Recorded amoxicillin 875 mg-potassium 1 tab PO BID #10 tabs 11/14/21 clavulanate 125 mg tablet (Augmentin) clozapine 25 mg tablet (Clozaril) 25 mg PO BEDTIME #30 tabs 11/14/21 Allergies Allergy/AdvReac Type Severity Reaction Status Date / Time aspirin [ASA] Allergy Unknown Verified 09/26/23 11:25 citric acid Allergy Unknown Verified 09/26/23 11:25 morphine Allergy Unknown Verified 09/26/23 11:25 Penicillins Allergy Unknown Verified 09/26/23 08:09 Review of Systems Review of Systems: Constitutional : No Fever, No Chills, No Fatigue ENT/Mouth : No sore throat, No Rhinorrhea Eyes: No Eye Pain, No Swelling, No Redness Cardiovascular : No Chest Pain, No SOB, No Dyspnea on Exertion Respiratory : No Cough, No Sputum Gastrointestinal : No Nausea, No Vomiting, No Diarrhea, No abdominal Pain Genitourinary : No Dysuria, No Urinary Frequency, No Hematuria, Musculoskeletal : No joint pain, No Myalgias, No Joint Swelling Skin : No Skin Lesions, No rash Neuro : No Weakness, No Numbness, pos Dizziness, no Headache Psych : No Anxiety/Panic, No Depression Heme/Lymph: No Bruising, No Bleeding,No Lymphadenopathy Endocrine : No Polyuria, No Polydipsia All other systems reviewed and are negative PMFSH Past Medical History Attestation statement: The following information was validated with the patient. Source: old records reviewed Medical History Aspiration pneumonia GERD (gastroesophageal reflux disease) SBO (small bowel obstruction) Back pain Schizophrenia MDD (major depressive disorder) AMAURI (generalized anxiety disorder) Pneumonia Surgical History Incarcerated hernia Social History Social History Alcohol intake: unknown Patient Tobacco Use Status: Current everyday Tobacco user Smoked in Last 30 Days: Yes Use of substances other than those prescribed or required for medical reasons: No Advance Directives: Yes Advance Directives on File: Yes Advance Directives Date on File: 11/20/21 service: No Current occupational status: disabled Physical Exam Vital Signs: Vital Signs: Last Vital Signs Temp 98.8 F 09/26/23 11:36 Pulse 100 09/26/23 11:36 Resp 14 09/26/23 11:36 BP 127/70 09/26/23 11:36 Pulse Ox 99 09/26/23 11:36 O2 Del Method Room Air 09/26/23 11:36 BMI result Body Mass Index 44.0 Appearance: Alert. Oriented X3. No acute distress. Eyes: Pupils equal, round and reactive to light. nystagmus and symptoms when looking to the right. ENT: Pharynx normal. Neck: Normal inspection. Neck supple. CVS: Normal heart rate and rhythm. Pulses normal. Respiratory: No respiratory distress. Breath sounds normal. Abdomen: Soft and non-tender. Skin: Skin warm and dry. Normal skin color. Normal skin turgor. Extremities: No lower extremity edema. Neuro: Oriented X 3. No motor deficit. No sensory deficit. no drift Medications Administered Discontinued Medications Generic Name Dose Route Start Last Admin Trade Name Angelq PRN Reason Stop Dose Admin Acetaminophen 650 mg 09/26/23 11:15 09/26/23 11:31 Acetaminophen 325 Mg Tablet PO 09/26/23 11:16 650 mg ONCE ONE Administration Meclizine HCl 25 mg 09/26/23 08:28 09/26/23 09:03 Meclizine Hcl 25 Mg Tablet PO 09/26/23 08:29 25 mg ONCE ONE Administration Ondansetron HCl 4 mg 09/26/23 08:28 09/26/23 09:03 Ondansetron Hcl 4 Mg/2 Ml Vial IVPUSH 09/26/23 08:29 4 mg ONCE ONE Administration Medical Decision Making Medical Decision Making MDM Narrative: 62 yo male with PMH of HTN, schizophrenia, obesity, GERD,pneumonia here with c/o dizziness and room spinning when looking and turning to the right. No other neuro symptoms. He has nausea he alludes this has happened to him in the past. He denies CP/SOB and GIB symptoms. He has no focal deficits. I have no other stroke symptoms on exam. I have no timeline or onset he is a very poor historian. At this time basic labs, EKG, IV, zofran/meclizine and CT head for mass. Posterior stroke seems unlikely as he has no other neuro symptoms. Differential Diagnosis Differential Diagnoses: The differential diagnosis associated with the presentation includes vertigo, dizziness, anemia, dehydration Admission/Observation Consideration of admission/observation: Escalation of care including admission/observation considered dizziness resolved, states he feels better attempting to walk patient but he is refusing and states he wants to rest Lab Data MDM Lab Attestation statement: I reviewed the patient's lab results. 09/26/23 08:38 09/26/23 08:38 Labs: Lab Results 09/26/23 09/26/23 Range/Units 08:38 12:10 WBC 14.7 H (4.8-10.8) X10*3/uL RBC 5.28 (4.60-5.80) X10*6/uL Hgb 14.8 (14.0-18.0) g/dl Hct 45.4 (42.0-52.0) % MCV 86.0 (80.0-98.0) fL MCH 28.0 (27.0-33.0) pg MCHC 32.6 (31.0-36.0) g/dl RDW 15.0 (11.0-16.0) % Plt Count 223 (160-400) X10*3/uL MPV 10.2 (9.4-12.4) fL Immature Gran % (Auto) 1.2 H (0.0-0.4) % Neut % (Auto) 83.6 H (45-73) % Lymph % (Auto) 8.1 L (20-40) % [place] % (Auto) 6.8 (2-11) % Eos % (Auto) 0.0 (0-4) % Baso % (Auto) 0.3 (0-2) % Lymph # (Auto) 1.2 (1.2-4.9) X10*3/uL [place] # (Auto) 1.0 (0.1-1.2) X10*3/uL Eos # (Auto) 0.0 (0.0-0.4) X10*3/uL Baso # (Auto) 0.0 (0.0-0.2) X10*3/uL Abs Immat Gran (auto) 0.17 H (0.00-0.03) X10*3/uL Absolute Neuts (auto) 12.3 H (2.0-8.3) x10*3/uL Absolute Nucleated RBC 0.000 (0.0-0.012) X10*3/uL Nucleated RBC % (auto) 0.0 (0.0-0.2) /100WBC PT 11.2 (11.1-13.3) SEC INR 0.9 (0.9-1.1) Sodium 141 (135-145) mmol/L Potassium 4.3 (3.3-5.1) mmol/L Chloride 105 (96-108) mmol/L Carbon Dioxide 28 (22-29) mmol/L Anion Gap 12 (12-20) BUN 17 H (9-16) mg/dL Creatinine 1.09 (0.5-1.4) mg/dL Estim Creat Clear Calc 86.5 Estimated GFR > 60 Random Glucose 175 H (60-115) mg/dL Calcium 9.3 (8.4-10.2) mg/dL Magnesium 1.9 (1.6-2.6) mg/dL Total Bilirubin 0.3 (0.0-1.0) mg/dL Direct Bilirubin 0.1 (0.0-0.5) mg/dL AST 19 (5-37) U/L ALT 38 (0-40) U/L Alkaline Phosphatase 140 H (39-117) U/L Troponin I High Sens < 2.7 (<3.5-35.0) ng/L Total Protein 8.0 (6.5-8.0) g/dL Albumin 4.0 (3.5-5.0) g/dL Lipase 14 (8-78) U/L Urine Color Yellow Urine Appearance Clear Urine pH 8.0 (5.0-9.0) Ur Specific [place] 1.020 (1.005-1.025) Urine Protein Trace (Neg-Trace) mg/dL Urine Glucose (UA) 250 H (Negative) mg/dL Urine Ketones Negative (Negative) mg/dL Urine Blood Negative (Negative) Urine Nitrite Negative (Negative) Ur Leukocyte Esterase Negative (Negative) COVID-19 (RONNI) Negative (Negative) COVID-19 Clin Com See Note Independent Interpretation I performed an independent interpretation of an: EKG and CT Scan (no ICH) Interpretation: Rate: 96 Rhythm: NSR [employer]: normal Normal P waves. Normal ARUNA. Normal QRS complex. ST T wave : no GERRI, nonspecific ST T wave chagnes qTC: normal prior studies: no acute ischemia The study has been interpreted contemporaneously by me. . Radiology Impression Discussion of test interpretation with radiology: I have reviewed the radiologist's reading. Independent Historian Clinical information obtained from an independent historian. History obtained from or confirmed by: EMS External Record Review External record reviewed: Inpatient record Discharge Plan Discharge Clinical Impression: Dizziness Patient Disposition: Home, Self-Care Instructions: Dizziness (ED) Additional Instructions: normal head CT, EKG, lytes normal, negative COVID return for weakness, numbness, chest pain, vision changes or any other concerns. TC de byron normal, electrocardiograma, lytes normal, COVID negativo Regrese si tiene debilidad, entumecimiento, dolor en el pecho, cambios en la visi?n o cualquier otra inquietud. Prescriptions: No Action multivitamin Tablet 1 tab PO DAILY sennosides-docusate sodium [Senna Plus] 8.6-50 mg Tablet 2 tab-cap PO BEDTIME PRN (Reason: Constipation) acetaminophen 500 mg Tablet 1,000 mg PO Q8H PRN (Reason: Severe Pain (Scale Score 7-10)) pantoprazole 40 mg tablet,delayed release (DR/EC) 1 tab PO DAILY metoprolol tartrate 50 mg tablet 1 tab PO BID polyethylene glycol 3350 [Miralax] 17 gram/dose Powder 17 g PO DAILY ondansetron 4 mg Tablet,Disintegrating 4 mg PO Q8H PRN (Reason: Nausea) aripiprazole 30 mg tablet 1 tab PO BEDTIME amoxicillin-pot clavulanate [Augmentin] 875-125 mg tablet 1 tab PO BID Qty: 10 0RF clozapine [Clozaril] 25 mg tablet 25 mg PO BEDTIME Qty: 30 0RF Print Language: Urdu
[2023-09-26 08:42] LABS: MANUAL DIFF FLAG NO
[2023-09-26 08:49] LABS: INTERNATIONAL NORM RATIO 0.9 (0.9-1.1); Prothrombin Time 11.2 SEC (11.1-13.3)
[2023-09-26 08:59] LABS: Alanine Aminotransferase 38 U/L (0-40); Alkaline Phosphatase 140 U/L (39-117); Anion Gap 12 (12-20); Aspartate Amino Transferase 19 U/L (5-37); Bilirubin Direct 0.1 mg/dL (0.0-0.5); Bilirubin Total 0.3 mg/dL (0.0-1.0); Blood Urea Nitrogen 17 mg/dL (9-16); Calcium 9.3 mg/dL (8.4-10.2); Carbon Dioxide 28 mmol/L (22-29); Chloride 105 mmol/L (96-108); Creatinine Clr Calc Pharmacy 86.5; Estimated Glomerular Filt Rate > 60; Glucose Random 175 mg/dL (60-115); Lipase 14 U/L (8-78); Magnesium 1.9 mg/dL (1.6-2.6); Potassium 4.3 mmol/L (3.3-5.1); Sodium 141 mmol/L (135-145)
[2023-09-26] MEDS: ondansetron HCL 4 MG/2 ML VIAL IVPUSH (09:03)
[2023-09-26] MEDS: Meclizine HCl 25 MG TABLET PO (09:03)
[2023-09-26 09:06] LABS: Basophils Percent Auto 0.3 % (0-2); Hematocrit 45.4 % (42.0-52.0); Hemoglobin 14.8 g/dl (14.0-18.0); Imm Gran Abs Auto 0.17 X10*3/uL (0.00-0.03); Imm Gran Pct Auto 1.2 % (0.0-0.4); Lymphocytes Absolute Auto 1.2 X10*3/uL (1.2-4.9); Lymphocytes Percent Auto 8.1 % (20-40); Mean Corpuscular HGB Conc 32.6 g/dl (31.0-36.0); Mean Platelet Volume 10.2 fL (9.4-12.4); Monocytes Percent Auto 6.8 % (2-11); Neutrophils Absolute Auto 12.3 x10*3/uL (2.0-8.3); Neutrophils Percent Auto 83.6 % (45-73); Platelet Count 223 X10*3/uL (160-400); Red Blood Count 5.28 X10*6/uL (4.60-5.80); White Blood Count 14.7 X10*3/uL (4.8-10.8)
[2023-09-26 09:07] LABS: COVID-19 Test Negative (Negative); IDNOW Serial# 08D9AD1C
[2023-09-26 09:10] LABS: Troponin-I High Sensitivity < 2.7 ng/L (<3.5-35.0)
[2023-09-26] MEDS: Acetaminophen 325 MG TABLET 650 MG PO (11:31)
--- NOTE | 2023-09-26 11:35 | PC.NURSE ---
This RN medicated patient per JAN, attempted to get patient up out of bed. Patient stated he is too dizzy to get up . Patient was able to sit on edge of bed but then proceeded to get dizzy and lay back down. DO aware
[2023-09-26 11:36] VITALS: BP 127/70; PULSE 100; RESP 14; TEMP 37.1; O2SAT 99
[2023-09-26 12:17] LABS: Appearance Urine Clear; Color Urine Yellow; Glucose Urine UA 250 mg/dL (Negative); Leukocyte Esterase Urine Negative (Negative); Nitrite Urine Negative (Negative); Urine Blood Negative (Negative); Urine Ketones Negative (Negative); Urine Protein Trace mg/dL (Neg-Trace)
== END 2023-09-26 12:59 | disposition home or self-care (01) ==
PROVIDERS: Emergency Provider Emergency Medicine; PCP Internal Medicine
DX: R42 Dizziness and giddiness (principal); Z11.52 Encounter for screening for COVID-19; I10 Essential (primary) hypertension; K21.9 Gastro-esophageal reflux disease without esophagitis; F17.210 Nicotine dependence, cigarettes, uncomplicated; E66.9 Obesity, unspecified; Z68.41 Body mass index [BMI] 40.0-44.9, adult; Z79.899 Other long term (current) drug therapy
CPT/HCPCS: 36415; 70450; 80048; 80076; 81003; 83690; 83735; 84484; 85025; 85610; 87635; 93005; 96374; 99284; 99285; J2405